=== PATIENT | male | born 1945 ===

== ENCOUNTER 2018-11-22 15:52 | Emergency (ER) | payer SELFPAY ==
[~2018-11-22] VITALS: Ht 160 cm; Wt 49.9 kg
[2018-11-22 15:52] VITALS: BP 165/99
--- NOTE | 2018-11-22 20:22 | Emergency Room Report ---
History of Present Illness General Chief Complaint: General Complaint Source: Patient Present Illness Allergies: Coded Allergies: No Known Allergies (Unverified , 11/22/18) Nursing Documentation-[facility] Past Medical History: No History, Except For Physical Exam Vital Signs Date Time Temp Pulse Resp B/P (MAP) Pulse Ox O2 Delivery O2 Flow Rate FiO2 11/22/18 15:29 98.2 74 24 165/99 (121) 99 Room Air Medical Decision Making ER Course Patient left without being seen. Patient was never examined by myself. Apparently patient arrived by paramedics and then refused to be evaluated by anyone. Refused treatment. Then he left the hospital. Last Vital Signs Date Time Temp Pulse Resp B/P (MAP) Pulse Ox O2 Delivery O2 Flow Rate FiO2 11/22/18 15:52 98.2 74 24 165/99 99 Room Air Disposition: ELOPED Condition: Improved Referrals: NOT CHOSEN IPA/,REFERRING (PCP) Markus Portillo MD Nov 22, 2018 20:22
== END 2018-11-22 16:00 | disposition left against medical advice (07) ==
LOC: EDBD 15:52 → EMR 16:00
DX: Z53.21 Procedure and treatment not carried out due to patient leaving prior to being seen by health care provider (principal)